=== PATIENT | female | born 1990 | race African-American/Black ===

== ENCOUNTER 2016-10-25 04:14 | Emergency (ER) | payer OTHER ==
[~2016-10-25] VITALS: Ht 170.2 cm; Wt 52.2 kg
[~2016-10-25 04:14] MED LIST: BENZ100C PO; DOXY100T PO; HYDR-971 PO; NAPR550T PO; PRED20TA PO; PROAIR HFA8.5 GM INH; SULF1TAB24 PO; TRAM-29 PO
[2016-10-25 05:13] LABS: BASO # 0.1 x10^3/uL (0.0-0.2); BASO % 1 % (0-3); EOS % 1 % (0-3); HEMATOCRIT 41.1 % (36.0-47.0); HEMOGLOBIN 13.7 g/dL (12.0-15.5); LYMPH # 3.1 x10^3/uL (1.0-4.8); LYMPH % 37 % (24-48); MEAN CORPUSCULAR HEMOGLOBIN 33 pg (25-35); MEAN CORPUSCULAR HGB CONC 33 g/dL (31-37); MEAN CORPUSCULAR VOLUME 100 fL (79-100); MONO % 7 % (0-9); NEUT % 54 % (31-73); PLATELET COUNT 263 x10^3/uL (140-400); RED BLOOD COUNT 4.13 x10^6/uL (3.50-5.40); RED CELL DISTRIBUTION WIDTH 12.7 % (11.5-14.5); WHITE BLOOD COUNT 8.4 x10^3/uL (4.0-11.0)
[2016-10-25 05:17] LABS: BILIRUBIN,URINE NEGATIVE (NEG); GLUCOSE,URINE NEGATIVE (NEG); NITRITE,URINE NEGATIVE (NEG); PROTEIN,URINE NEGATIVE (NEG-TRACE); UROBILINOGEN,URINE 0.2 mg/dL (0.2 mg/dL)
[2016-10-25 05:24] LABS: BARBITURATES NEG (NEG); BENZODIAZEPINES NEG (NEG); CANNABINOIDS POS (NEG); COCAINE NEG (NEG); METHADONE NEG (NEG); OPIATES NEG (NEG); PHENCYCLIDINE NEG (NEG)
[2016-10-25 05:25] LABS: ETHANOL, URINE POS (NEG)
[2016-10-25 05:28] LABS: CALCIUM 8.9 mg/dL (8.5-10.1); CREATININE 0.8 mg/dL (0.6-1.0); GFR 106.6; POTASSIUM 3.9 mmol/L (3.5-5.1)
[2016-10-25 05:30] LABS: BACTERIA,URINE FEW /HPF (0-FEW); RBC,URINE 0 /HPF (0-2); SQUAMOUS EPITHELIAL CELL,UR FEW /LPF
[2016-10-25] MEDS ORDERED: ONDANSETRON PF 4 MG/2 ML VIAL. IV ONE (05:30)
[2016-10-25] MEDS ORDERED: IV NORMAL SALINE 1000ML BAG 1,000 ML IV SCH (05:30)
[2016-10-25] MEDS ORDERED: KETOROLAC TROMETHAMINE 30 MG/ML INJ. IV ONE (05:30)
[2016-10-25] MEDS ORDERED: HYDROMORPHONE 2 MG/ML VIAL. IV ONE (05:30)
[2016-10-25 05:33] LABS: ALBUMIN 3.8 g/dL (3.4-5.0); ALBUMIN/GLOBULIN RATIO 1.2 (1.0-1.7); TOTAL BILIRUBIN 0.3 mg/dL (0.2-1.0); TOTAL PROTEIN 7.1 g/dL (6.4-8.2)
[2016-10-25 05:35] LABS: NEG OBC SER NEG; POS OBC SER POS
[2016-10-25] MEDS ORDERED: TRAM-29 PO (06:17)
[2016-10-25] MEDS ORDERED: ONDA4TAB10 SL (06:17)
--- NOTE | 2016-10-25 06:18 | PHYS DOC ---
Past Medical History Past Medical History: Asthma, Bronchitis, IBS, Sickle Cell Disease Past Surgical History: Other Additional Past Surgical Histo: tube removal Alcohol Use: Occasionally Drug Use: Marijuana Adult General Chief Complaint Chief Complaint: ABDOMINAL PAIN HPI HPI Patient is a 25 year old female who presents here today complaining of abdominal pain that started approximately 10 PM tonight. Patient reports that the pain got much worse approximately 30 minutes prior to arrival to the ER. Patient denies any history of hypertension diabetes liver longer kidney problems. Patient reports she smokes and drinks but no drugs. Patient reports that her last alcohol use was approximately 10 PM where she was drinking Moscato wine when the pain started. Patient reports she went home and try to sleep at approximately 30 minutes prior to arrival the pain got much worse. Patient denies any fevers shakes chills nausea vomiting diarrhea. Patient reports she's got some dysuria frequency and urgency. Patient denies any chest pain. Patient complaining of left upper quadrant and left lower quadrant abdominal discomfort. Patient's last menstrual period was 3 weeks ago. Patient reports that she's had a tubal in the past. Patient had a procedure done approximately 2 weeks ago. Patient's physical exam the ER was significant for tenderness to palpation to her left upper and left lower quadrant. Patient had no rebound or guarding. Patient has no psoas or obturator signs. Patient denies any signs or symptoms of be consistent with an acute surgical abdomen. Patient's heart was regular rate. Lungs are clear. Abdomen was benign otherwise. Patient's ER hospital course was significant for last being drawn which were all within normal limits. Patient's UA was unremarkable. Patient's test was negative. Patient received Toradol and Zofran and Dilaudid to assist with the pain and at 6:15 AM patient is completely pain-free and resting comfortably. A/P #1 abdominal pain: Etiology unclear. Patient is clinically and hemodynamically stable with a negative ER workup. Patient does not present with any signs or symptoms of be concerning for an acute surgical abdomen. Patient will be discharged home in stable condition with instructions to follow up with her primary care physician for further evaluation of this discomfort. Patient was instructed to return to the ER if the pain worsens or if she has any other concerns however at this time there is no further indication for inpatient or further emergency room evaluation. Review of Systems Review of Systems Constitutional: Denies fever or chills [] Eyes: Denies change in visual acuity, redness, or eye pain [] HENT: Denies nasal congestion or sore throat [] All other REVIEW of systems are negative except as documented in the history of present illness portion. Current Medications Current Medications Current Medications Medications (Trade) Dose Ordered Sig/Phi Start Time Stop Time Status Last Admin Dose Admin Hydromorphone HCl (Dilaudid) 0.5 mg 1X ONCE 10/25/16 05:30 10/25/16 05:31 DC 10/25/16 05:23 0.5 MG Ketorolac Tromethamine (Toradol) 30 mg 1X ONCE 10/25/16 05:30 10/25/16 05:31 DC 10/25/16 05:25 30 MG Ondansetron HCl (Zofran) 4 mg 1X ONCE 10/25/16 05:30 10/25/16 05:31 DC 10/25/16 05:20 4 MG Sodium Chloride (Iv Sodium Chloride 0.9% 1000ml Bag) 1,000 ml @ 1,000 mls/hr Q1H 10/25/16 05:30 10/25/16 06:29 10/25/16 05:18 1,000 MLS/HR Allergies Allergies Allergies Coded Allergies Type Severity Reaction Last Updated Verified No Known Drug Allergies 08/24/15 No Physical Exam Physical Exam Constitutional: Well developed, well nourished, no acute distress, non-toxic appearance. [] HENT: Normocephalic, atraumatic, bilateral external ears normal, oropharynx moist, no oral exudates, nose normal. [] Eyes: PERRLA, EOMI, conjunctiva normal, no discharge. [] Neck: Normal range of motion, no tenderness, supple, no stridor. [] Cardiovascular:Heart rate regular rhythm, no murmur [] Lungs & Thorax: Bilateral breath sounds clear to auscultation [] Abdomen: See above. Back: No tenderness, no CVA tenderness. [] Extremities: No tenderness, no cyanosis, no clubbing, ROM intact, no edema. [] Neurologic: Alert and oriented X 3, normal motor function, normal sensory function, no focal deficits noted. [] Psychologic: Affect normal, judgement normal, mood normal. [] Current Patient Data Vital Signs Vital Signs Date Time Temp Pulse Resp B/P Pulse Ox O2 Delivery O2 Flow Rate FiO2 10/25/16 05:23 18 10/25/16 04:49 98.3 82 97 Room Air 98.3 Lab Values Laboratory Tests Test 10/25/16 03:49 10/25/16 04:38 10/25/16 04:56 10/25/16 05:02 POC Urine HCG, Qualitative Hcg negative (Negative) Urine Collection Type Unknown Urine Color Yellow Urine Clarity Clear Urine pH 6.0 Urine Specific [place] 1.010 Urine Protein Negativemg/dL (NEG-TRACE) Urine Glucose (UA) Negativemg/dL (NEG) Urine Ketones (Stick) Negativemg/dL (NEG) Urine Blood Negative (NEG) Urine Nitrite Negative (NEG) Urine Bilirubin Negative (NEG) Urine Urobilinogen Dipstick 0.2mg/dL (0.2 mg/dL) Urine Leukocyte Esterase Negative (NEG) Urine RBC 0/HPF (0-2) Urine WBC 1-4/HPF (0-4) Urine Squamous Epithelial Cells Few/LPF Urine Bacteria Few/HPF (0-FEW) Urine Mucus Mod/LPF Urine Opiates Screen Neg (NEG) Urine Methadone Screen Neg (NEG) Urine Barbiturates Neg (NEG) Urine Phencyclidine Screen Neg (NEG) Urine Amphetamine/Methamphetamine Neg (NEG) Urine Benzodiazepines Screen Neg (NEG) Urine Cocaine Screen Neg (NEG) Urine Cannabinoids Screen Pos (NEG) Urine Ethyl Alcohol Pos (NEG) Serum Test, Qualitative Negative (NEG) White Blood Count 8.4x10^3/uL (4.0-11.0) Red Blood Count 4.13x10^6/uL (3.50-5.40) Hemoglobin 13.7g/dL (12.0-15.5) Hematocrit 41.1% (36.0-47.0) Mean Corpuscular Volume 100fL (79-100) Mean Corpuscular Hemoglobin 33pg (25-35) Mean Corpuscular Hemoglobin Concent 33g/dL (31-37) Red Cell Distribution Width 12.7% (11.5-14.5) Platelet Count 263x10^3/uL (140-400) Neutrophils (%) (Auto) 54% (31-73) Lymphocytes (%) (Auto) 37% (24-48) Monocytes (%) (Auto) 7% (0-9) Eosinophils (%) (Auto) 1% (0-3) Basophils (%) (Auto) 1% (0-3) Neutrophils # (Auto) 4.5x10^3uL (1.8-7.7) Lymphocytes # (Auto) 3.1x10^3/uL (1.0-4.8) Monocytes # (Auto) 0.6x10^3/uL (0.0-1.1) Eosinophils # (Auto) 0.1x10^3/uL (0.0-0.7) Basophils # (Auto) 0.1x10^3/uL (0.0-0.2) Sodium Level 142mmol/L (136-145) Potassium Level 3.9mmol/L (3.5-5.1) Chloride Level 105mmol/L (98-107) Carbon Dioxide Level 23mmol/L (21-32) Anion Gap 14 (6-14) Blood Urea Nitrogen 9mg/dL (7-20) Creatinine 0.8mg/dL (0.6-1.0) Estimated GFR (Cockcroft-Gault) 106.6 BUN/Creatinine Ratio 11 (6-20) Glucose Level 90mg/dL (70-99) Calcium Level 8.9mg/dL (8.5-10.1) Total Bilirubin 0.3mg/dL (0.2-1.0) Aspartate Amino Transferase (AST) 19U/L (15-37) Alanine Aminotransferase (ALT) 18U/L (14-59) Alkaline Phosphatase 48U/L (46-116) Total Protein 7.1g/dL (6.4-8.2) Albumin 3.8g/dL (3.4-5.0) Albumin/Globulin Ratio 1.2 (1.0-1.7) Lipase 153U/L (73-393) Laboratory Tests 10/25/16 05:02 Laboratory Tests 10/25/16 05:02 EKG EKG [] Radiology/Procedures Radiology/Procedures [] Course & Med Decision Making Course & Med Decision Making Pertinent Labs and Imaging studies reviewed. (See chart for details) [] Dragon Disclaimer Dragon Disclaimer This electronic medical record was generated, in whole or in part, using a voice recognition dictation system. Departure Departure Impression: Primary Impression: Abdominal pain Disposition: HOME, SELF-CARE Condition: GUARDED Referrals: NO PCP (PCP) Patient Instructions: Abdominal Pain (Nonspecific) Scripts Ondansetron (Zofran Odt)4 Mg Tab.rapdis1 Tab SL Q6HRS PRN NAUSEA #12 TAB Prov:SHEA VAUGHAN MD 10/25/16 Tramadol Hcl (Ultram)50 Mg Tablet1 Tab PO Q6HRS #14 TAB Prov:SHEA VAUGHAN MD 10/25/16 SHEA VAUGHAN MD Oct 25, 2016 06:17
[2016-10-25 06:55] VITALS: BP 120/75
== END 2016-10-25 06:58 | disposition home or self-care (01) ==
LOC: ER 04:14
DX: R10.31 Right lower quadrant pain (principal); J45.909 Unspecified asthma, uncomplicated; F12.10 Cannabis abuse, uncomplicated; F17.200 Nicotine dependence, unspecified, uncomplicated
CPT/HCPCS: 36415; 80053; 80305; 81001; 81025; 83690; 84703; 85027; 96361; 96374; 96375; 99284; J1170; J1885; J2405; J7030; G0481

== ENCOUNTER 2016-12-02 03:37 | Emergency (ER) | payer OTHER ==
[~2016-12-02] VITALS: Ht 170.2 cm; Wt 52.2 kg
[~2016-12-02 03:37] MED LIST changes: +ONDA4TAB10 SL
[2016-12-02 03:51] VITALS: BP 113/69
[2016-12-02 04:27] LABS: BILIRUBIN,URINE NEGATIVE (NEG); GLUCOSE,URINE NEGATIVE (NEG); PH,URINE 5.5
[2016-12-02 04:28] LABS: BACTERIA,URINE 0 /HPF (0-FEW); NITRITE,URINE NEGATIVE (NEG); PROTEIN,URINE NEGATIVE (NEG-TRACE); RBC,URINE 0 /HPF (0-2); SQUAMOUS EPITHELIAL CELL,UR MOD /LPF; UROBILINOGEN,URINE 0.2 mg/dL (0.2 mg/dL); WBC,URINE OCC /HPF (0-4)
[2016-12-02] MEDS ORDERED: LIDO:MAALOX:DONNATAL 1:1:1 15 ML SINGLE DOSE SWSW ONE (04:30)
[2016-12-02] MEDS ORDERED: ONDANSETRON ODT 4 MG TAB.RAPDIS. PO ONE (04:30)
[2016-12-02] MEDS ORDERED: DICY10CA53 PO (04:35)
[2016-12-02] MEDS ORDERED: ONDA4TAB7 PO (04:35)
[2016-12-02] MEDS ORDERED: METR500T PO (04:35)
--- NOTE | 2016-12-02 04:35 | PHYS DOC ---
Past Medical History Past Medical History: Asthma, Bronchitis, IBS Past Surgical History: Other Additional Past Surgical Histo: tube removal Alcohol Use: Occasionally Drug Use: Marijuana Adult General Chief Complaint Chief Complaint: ABDOMINAL PAIN HPI HPI 25 year old female is having mild epigastrium and left upper quadrant pain with some mild nausea as well has some vaginal discharge for the last several days. Patient is in no acute distress upon arrival. She is afebrile nontoxic in appearance. She denies any history of significant health problems. Patient was recently treated for STDs and is currently on a course of doxycycline. She describes her discharge as a thin white discharge. She denies any vaginal bleeding. She denies any dysuria or hematuria. Review of Systems Review of Systems Constitutional: Denies fever or chills [] Eyes: Denies change in visual acuity, redness, or eye pain [] HENT: Denies nasal congestion or sore throat [] Respiratory: Denies cough or shortness of breath [] Cardiovascular: No additional information not addressed in HPI [] GI: Denies abdominal pain, nausea, vomiting, bloody stools or diarrhea [] : Denies dysuria or hematuria [] Musculoskeletal: Denies back pain or joint pain [] Integument: Denies rash or skin lesions [] Neurologic: Denies headache, focal weakness or sensory changes [] Endocrine: Denies polyuria or polydipsia [] Current Medications Current Medications Current Medications Medications (Trade) Dose Ordered Sig/Phi Start Time Stop Time Status Last Admin Dose Admin Multi-Ingredient Mouthwash/Gargle (Gi Cocktail Single Dose) 15 ml 1X ONCE 12/02/16 04:30 12/02/16 04:31 DC 12/02/16 04:23 15 ML Ondansetron HCl (Zofran Odt) 4 mg 1X ONCE 12/02/16 04:30 12/02/16 04:31 DC 12/02/16 04:24 4 MG Allergies Allergies Allergies Coded Allergies Type Severity Reaction Last Updated Verified No Known Drug Allergies 08/24/15 No Physical Exam Physical Exam Constitutional: Well developed, well nourished, no acute distress, non-toxic appearance. [] HENT: Normocephalic, atraumatic, bilateral external ears normal, oropharynx moist, no oral exudates, nose normal. [] Eyes: PERRLA, EOMI, conjunctiva normal, no discharge. [] Neck: Normal range of motion, no tenderness, supple, no stridor. [] Cardiovascular:Heart rate regular rhythm, no murmur [] Lungs & Thorax: Bilateral breath sounds clear to auscultation [] Abdomen: Bowel sounds normal, soft, no tenderness, no masses, no pulsatile masses. [] : Her speculum exam reveals a closed cervical os with a thin white discharge noted. She has no CMT or adnexal tenderness. Skin: Warm, dry, no erythema, no rash. [] Back: No tenderness, no CVA tenderness. [] Extremities: No tenderness, no cyanosis, no clubbing, ROM intact, no edema. [] Neurologic: Alert and oriented X 3, normal motor function, normal sensory function, no focal deficits noted. [] Psychologic: Affect normal, judgement normal, mood normal. [] Current Patient Data Vital Signs Vital Signs Date Time Temp Pulse Resp B/P (MAP) Pulse Ox O2 Delivery O2 Flow Rate FiO2 12/02/16 03:51 98.8 64 16 113/69 (84) 97 Room Air 98.8 Lab Values Laboratory Tests Test 12/02/16 03:16 12/02/16 03:45 POC Urine HCG, Qualitative Hcg negative (Negative) Urine Collection Type Unknown Urine Color Yellow Urine Clarity Clear Urine pH 5.5 Urine Specific [place] 1.025 Urine Protein Negative mg/dL (NEG-TRACE) Urine Glucose (UA) Negative mg/dL (NEG) Urine Ketones (Stick) Negative mg/dL (NEG) Urine Blood Negative (NEG) Urine Nitrite Negative (NEG) Urine Bilirubin Negative (NEG) Urine Urobilinogen Dipstick 0.2 mg/dL (0.2 mg/dL) Urine Leukocyte Esterase Negative (NEG) Urine RBC 0 /HPF (0-2) Urine WBC Occ /HPF (0-4) Urine Squamous Epithelial Cells Mod /LPF Urine Calcium Phosphate Crystals /HPF Urine Bacteria 0 /HPF (0-FEW) Urine Mucus Marked /LPF Microbiology 12/02/16 Wet Prep - Final, Complete EKG EKG [] Radiology/Procedures Radiology/Procedures [] Course & Med Decision Making Course & Med Decision Making Pertinent Labs and Imaging studies reviewed. (See chart for details) 25 year old female is having some vaginal discharge had a exam that was negative for any cervical motion tenderness. Patient did have a thin white discharge for which I'll place the patient on Flagyl. The patient was recently treated for STD and I do not see an indication at this time to retreat her. Her urinalysis is negative for any infection. Patient was also given Zofran and GI cocktail for likely symptoms of gastritis. Patient was given prescriptions for Flagyl and Zofran. She was counseled to continue to take her doxycycline as well. There is no indication to perform any laboratory workup at this time. She felt much improved upon discharge. Return precautions were provided and acknowledged by the patient. Dragon Disclaimer Dragon Disclaimer This electronic medical record was generated, in whole or in part, using a voice recognition dictation system. Departure Departure Impression: Primary Impression: Abdominal pain Additional Impression: Bacterial vaginosis Disposition: HOME, SELF-CARE Admitting Physician: Other Condition: STABLE Referrals: NO PCP (PCP) Patient Instructions: Bacterial Vaginosis, [id number] Additional Instructions: Please take your medication as prescribed. Return to the ER if you develop any worsening of your symptoms. Follow up with your primary doctor in the next 2-3 days. Scripts Metronidazole (FLAGYL) 500 Mg Tablet 1 TAB PO BID, #14 TAB Prov: JENIFFER PARRA DO 12/02/16 Dicyclomine Hcl (BENTYL) 10 Mg Capsule 10 MG PO TID for 5 Days, #15 TAB Prov: JENIFFER PARRA DO 12/02/16 Ondansetron Hcl (ZOFRAN) 4 Mg Tablet 4 MG PO BID Y for NAUSEA/VOMITING, #10 TAB Prov: JENIFFER PARRA DO 12/02/16 Problem Qualifiers JENIFFER PARRA DO December 02, 2016 04:35
== END 2016-12-02 04:47 | disposition home or self-care (01) ==
LOC: ER 03:37
DX: R10.13 Epigastric pain (principal); N76.0 Acute vaginitis; K58.9 Irritable bowel syndrome, unspecified; F12.10 Cannabis abuse, uncomplicated; J45.909 Unspecified asthma, uncomplicated
CPT/HCPCS: 81001; 81025; 87491; 87591; 99284; Q0111; Q0162

== ENCOUNTER 2017-06-24 19:42 | Emergency (ER) | payer OTHER ==
[~2017-06-24] VITALS: Ht 170.2 cm; Wt 49.9 kg
[~2017-06-24 19:42] MED LIST changes: +CEPH-263 PO; +CLOT15CR4 TP; +DICY10CA53 PO; +METR500T PO; +NAPR-682 PO; -NAPR550T PO; +ONDA4TAB7 PO; -TRAM-29 PO; +TRAM-48 PO
--- NOTE | 2017-06-24 20:13 | PHYS DOC ---
Past Medical History Past Medical History: Asthma, Bronchitis, IBS, Other Additional Past Medical Histor: EPTOPIC Past Surgical History: Other Additional Past Surgical Histo: tube removal Alcohol Use: Occasionally Drug Use: Marijuana Adult General Chief Complaint Chief Complaint: ABDOMINAL PAIN IN HPI HPI Patient is a 26 year old F who presents with abdominal pain was approximate 7 weeks . Patient is A1 who presents with abdominal pain for the past day. Patient denies any vaginal discharge or vaginal bleeding. Patient declines any recent intercourse. Patient denies any dysuria. Patient states nothing increases or decreases the pain. Patient states the pains been constant. Patient has no other complaints. Review of Systems Review of Systems GEN: Denies fevers, chills, sweats HEENT: Denies blurred vision, sore throat CV: Denies chest pain RESP: Denies shortness of air, cough GI: Abdominal pain NEURO: Denies confusion, dizziness MSK: Denies weakness, joint pain/swelling All other systems were reviewed and found to be within normal limits, except as documented in this note. Current Medications Current Medications Current Medications Medications (Trade) Dose Ordered Sig/Phi Start Time Stop Time Status Last Admin Dose Admin Acetaminophen (Tylenol) 1,000 mg 1X ONCE 06/24/17 22:00 06/24/17 22:01 DC 06/24/17 21:50 1,000 MG Sodium Chloride 1,000 ml @ 1,000 mls/hr 1X ONCE 06/24/17 20:15 06/24/17 21:14 DC 06/24/17 20:10 1,000 MLS/HR Allergies Allergies Allergies Coded Allergies Type Severity Reaction Last Updated Verified No Known Drug Allergies 08/24/15 No Physical Exam Physical Exam GEN.: No apparent distress. Alert and oriented. HEENT: Head is normocephalic, atraumatic NECK: Supple. LUNGS: CTAB. HEART: RRR, S1, S2 present. Peripheral pulses intact ABDOMEN: Soft, nontender. Positive bowel sounds. EXTREMITIES: Without any cyanosis. NEUROLOGIC: Normal speech, normal tone PSYCHIATRIC: Normal affect, normal mood. SKIN: No ulcerations Current Patient Data Vital Signs Vital Signs Date Time Temp Pulse Resp B/P (MAP) Pulse Ox O2 Delivery O2 Flow Rate FiO2 06/24/17 19:55 97.8 85 16 125/60 (81) 100 Room Air 97.8 Lab Values Laboratory Tests Test 06/24/17 19:57 06/24/17 19:58 06/24/17 20:37 Urine Collection Type Unknown Urine Color Yellow Urine Clarity Cloudy Urine pH 7.0 Urine Specific [place] 1.015 Urine Protein Negative mg/dL (NEG-TRACE) Urine Glucose (UA) Negative mg/dL (NEG) Urine Ketones (Stick) Negative mg/dL (NEG) Urine Blood Negative (NEG) Urine Nitrite Negative (NEG) Urine Bilirubin Negative (NEG) Urine Urobilinogen Dipstick 0.2 mg/dL (0.2 mg/dL) Urine Leukocyte Esterase Negative (NEG) Urine RBC 0 /HPF (0-2) Urine WBC Occ /HPF (0-4) Urine Squamous Epithelial Cells Few /LPF Urine Amorphous Sediment Present /HPF Urine Bacteria 0 /HPF (0-FEW) Urine Mucus Slight /LPF POC Urine HCG, Qualitative Hcg positive (Negative) White Blood Count 13.0 x10^3/uL (4.0-11.0) H Red Blood Count 3.63 x10^6/uL (3.50-5.40) Hemoglobin 12.1 g/dL (12.0-15.5) Hematocrit 36.1 % (36.0-47.0) Mean Corpuscular Volume 100 fL (79-100) Mean Corpuscular Hemoglobin 33 pg (25-35) Mean Corpuscular Hemoglobin Concent 34 g/dL (31-37) Red Cell Distribution Width 12.9 % (11.5-14.5) Platelet Count 287 x10^3/uL (140-400) Neutrophils (%) (Auto) 66 % (31-73) Lymphocytes (%) (Auto) 24 % (24-48) Monocytes (%) (Auto) 8 % (0-9) Eosinophils (%) (Auto) 1 % (0-3) Basophils (%) (Auto) 1 % (0-3) Neutrophils # (Auto) 8.6 x10^3uL (1.8-7.7) H Lymphocytes # (Auto) 3.2 x10^3/uL (1.0-4.8) Monocytes # (Auto) 1.0 x10^3/uL (0.0-1.1) Eosinophils # (Auto) 0.1 x10^3/uL (0.0-0.7) Basophils # (Auto) 0.1 x10^3/uL (0.0-0.2) Maternal Serum HCG Beta Subunit 051388 mIU/mL (0-5) H Sodium Level 138 mmol/L (136-145) Potassium Level 4.2 mmol/L (3.5-5.1) Chloride Level 104 mmol/L (98-107) Carbon Dioxide Level 27 mmol/L (21-32) Anion Gap 7 (6-14) Blood Urea Nitrogen 7 mg/dL (7-20) Creatinine 0.6 mg/dL (0.6-1.0) Estimated GFR (Cockcroft-Gault) 147.4 BUN/Creatinine Ratio 12 (6-20) Glucose Level 120 mg/dL (70-99) H Calcium Level 8.7 mg/dL (8.5-10.1) Total Bilirubin 0.1 mg/dL (0.2-1.0) L Aspartate Amino Transferase (AST) 16 U/L (15-37) Alanine Aminotransferase (ALT) 15 U/L (14-59) Alkaline Phosphatase 44 U/L (46-116) L Total Protein 6.3 g/dL (6.4-8.2) L Albumin 3.3 g/dL (3.4-5.0) L Albumin/Globulin Ratio 1.1 (1.0-1.7) Laboratory Tests 06/24/17 20:37 Laboratory Tests 06/24/17 20:37 EKG EKG [] Radiology/Procedures Radiology/Procedures US: IMPRESSION: 1. Single live intrauterine with appropriate size by ultrasound. 2. No abnormality identified. A short-term follow-up ultrasound could be performed if clinically indicated otherwise a structural survey would be performed at 18-21 weeks gestational age.[] Course & Med Decision Making Course & Med Decision Making Pertinent Labs and Imaging studies reviewed. (See chart for details) ED course: Patient was seen and examined emergency room basic blood work was ordered along with the ultrasound first trimester Was updated on ultrasound results and plan to discharge home and recommended follow-up GEOLOGY INSTRUCTOR MDM: After reviewing the chart, CC/HPI/PMH, physical exam, [lab results], [ radiological results], I do not believe the patient has emergent obstetrics condition warranting further workup and/or admission at this time. I the patient stable for discharge. Recommended pelvic rest and short term follow-up with her GEOLOGY INSTRUCTOR. Additional verbal discharge instructions were provided to the patient and that if symptoms get worse or any new symptoms arise that are worrisome to the patient she is to return to the emergency room immediately Mike Disclaimer Luciuson Disclaimer This electronic medical record was generated, in whole or in part, using a voice recognition dictation system. Departure Departure Impression: Primary Impression: Abdominal pain affecting Disposition: 01 HOME, SELF-CARE Condition: STABLE Referrals: NO PCP (PCP) Patient Instructions: Abdominal Pain During Additional Instructions: Please follow-up with your OBGYN physician in the next one to 2 days and return if symptoms increase KULDIP LUCERO DO Jun 24, 2017 20:13
[2017-06-24] MEDS ORDERED: IV NORMAL SALINE 1000ML BAG 1,000 ML IV ONE (20:15)
[2017-06-24 20:17] LABS: BILIRUBIN,URINE NEGATIVE (NEG); GLUCOSE,URINE NEGATIVE (NEG); NITRITE,URINE NEGATIVE (NEG); PROTEIN,URINE NEGATIVE (NEG-TRACE); UROBILINOGEN,URINE 0.2 mg/dL (0.2 mg/dL)
[2017-06-24 20:22] LABS: BACTERIA,URINE 0 /HPF (0-FEW); RBC,URINE 0 /HPF (0-2); SQUAMOUS EPITHELIAL CELL,UR FEW /LPF; WBC,URINE OCC /HPF (0-4)
[2017-06-24 20:48] LABS: BASO # 0.1 x10^3/uL (0.0-0.2); BASO % 1 % (0-3); EOS % 1 % (0-3); HEMATOCRIT 36.1 % (36.0-47.0); HEMOGLOBIN 12.1 g/dL (12.0-15.5); LYMPH # 3.2 x10^3/uL (1.0-4.8); LYMPH % 24 % (24-48); MEAN CORPUSCULAR HEMOGLOBIN 33 pg (25-35); MEAN CORPUSCULAR HGB CONC 34 g/dL (31-37); MEAN CORPUSCULAR VOLUME 100 fL (79-100); MONO % 8 % (0-9); NEUT % 66 % (31-73); PLATELET COUNT 287 x10^3/uL (140-400); RED BLOOD COUNT 3.63 x10^6/uL (3.50-5.40); RED CELL DISTRIBUTION WIDTH 12.9 % (11.5-14.5)
[2017-06-24 21:03] LABS: CALCIUM 8.7 mg/dL (8.5-10.1); CREATININE 0.6 mg/dL (0.6-1.0); GFR 147.4; POTASSIUM 4.2 mmol/L (3.5-5.1)
[2017-06-24 21:11] LABS: ALBUMIN 3.3 g/dL (3.4-5.0); ALBUMIN/GLOBULIN RATIO 1.1 (1.0-1.7); TOTAL BILIRUBIN 0.1 mg/dL (0.2-1.0); TOTAL PROTEIN 6.3 g/dL (6.4-8.2)
[2017-06-24] MEDS ORDERED: ACETAMINOPHEN 500 MG TABLET PO ONE (22:00)
--- NOTE | 2017-06-24 22:42 | RAD ---
OB ultrasound less than 14 weeks and transvaginal OB ultrasound HISTORY: with pain for one day Sonographic examination of the was performed by transabdominal and endovaginal technique. Multiple static images were obtained COMPARISON: June 11, 2017 OB ultrasound less than 14 weeks transabdominal: There is a single live intrauterine . The heartbeat is confirmed at 147 beats per minute. Transvaginal OB ultrasound: The pole and yolk sac and gestational sac are again seen in the uterus. The crown-rump length of 12.3 mm corresponds with a 7 week 3 day gestational age and estimated date confinement of 02/07/2018. The LMP of 05/04/2017 corresponds with 7 week 2 day gestational age. The left ovary appears normal with normal blood flow. There is a 1.9 x 1.2 x 2.0 cm corpus luteal cyst in the right ovary. The right ovary has normal blood flow. IMPRESSION: 1. Single live intrauterine with appropriate size by ultrasound. 2. No abnormality identified. A short-term follow-up ultrasound could be performed if clinically indicated otherwise a structural survey would be performed at 18-21 weeks gestational age. Electronically signed by: Tien Galeano III, MD (06/24/2017 10:39 PM) [facility]
[2017-06-24 23:15] VITALS: BP 98/54
== END 2017-06-24 23:25 | disposition home or self-care (01) ==
LOC: ER 19:42
DX: O26.891 Other specified pregnancy related conditions, first trimester (principal); R10.9 Unspecified abdominal pain; O99.511 Diseases of the respiratory system complicating pregnancy, first trimester; J45.909 Unspecified asthma, uncomplicated; O99.611 Diseases of the digestive system complicating pregnancy, first trimester; K58.9 Irritable bowel syndrome, unspecified; F12.10 Cannabis abuse, uncomplicated; Z3A.01 Less than 8 weeks gestation of pregnancy
CPT/HCPCS: 36415; 76801; 76817; 80053; 81001; 81025; 84702; 85025; 99284; J7030

== ENCOUNTER 2017-10-18 23:10 | Observation (INO) | payer OTHER ==
[2017-10-18] MEDS ORDERED: ONDANSETRON PF 4 MG/2 ML VIAL. IV (23:15)
[2017-10-18] MEDS ORDERED: IV RINGERS,LACTATED 1000ML 1,000 ML IV (23:15)
[2017-10-18 23:41] LABS: BILIRUBIN,URINE NEGATIVE (NEG); CLARITY,URINE CLEAR; COLOR,URINE YELLOW; GLUCOSE,URINE 100 mg/dL (NEG); NITRITE,URINE NEGATIVE (NEG); PH,URINE 6.5; PROTEIN,URINE NEGATIVE (NEG-TRACE)
[2017-10-18 23:44] LABS: BARBITURATES NEG (NEG); BENZODIAZEPINES NEG (NEG); CANNABINOIDS POS (NEG); COCAINE NEG (NEG); METHADONE NEG (NEG); OPIATES NEG (NEG); PHENCYCLIDINE NEG (NEG)
[2017-10-18 23:45] LABS: BACTERIA,URINE MODERATE /HPF (0-FEW); RBC,URINE 0 /HPF (0-2); SQUAMOUS EPITHELIAL CELL,UR MANY /LPF
[2017-10-18 23:46] LABS: AMPHETAMINE/METHAMPHETAMINE NEG (NEG); ETHANOL, URINE NEG (NEG)
== END 2017-10-19 00:46 | disposition home or self-care (01) ==
LOC: 3 SO LND 23:10
DX: O21.2 Late vomiting of pregnancy (principal); O26.892 Other specified pregnancy related conditions, second trimester; R10.9 Unspecified abdominal pain; R11.0 Nausea; Z3A.25 25 weeks gestation of pregnancy
CPT/HCPCS: 80307; 81001; 87086; G0378; G0379

== ENCOUNTER 2018-01-01 09:54 | Observation (INO) | payer OTHER ==
[2018-01-01] MEDS ORDERED: IV RINGERS,LACTATED 1000ML 1,000 ML IV (11:00)
[2018-01-01] MEDS: hydrOXYzine PAMOATE 25 MG CAPSULE PO (11:26)
[2018-01-01 11:33] LABS: BILIRUBIN,URINE NEGATIVE (NEG); CLARITY,URINE CLEAR; COLOR,URINE YELLOW; GLUCOSE,URINE 250 mg/dL (NEG); NITRITE,URINE NEGATIVE (NEG); PROTEIN,URINE NEGATIVE (NEG-TRACE); UROBILINOGEN,URINE 0.2 mg/dL (0.2 mg/dL)
[2018-01-01 11:34] LABS: BACTERIA,URINE 0 /HPF (0-FEW); RBC,URINE 0 /HPF (0-2); SQUAMOUS EPITHELIAL CELL,UR FEW /LPF; WBC,URINE OCC /HPF (0-4)
== END 2018-01-01 11:30 | disposition home or self-care (01) ==
LOC: 3 SO LND 09:54
DX: O62.9 Abnormality of forces of labor, unspecified (principal); Z3A.32 32 weeks gestation of pregnancy
CPT/HCPCS: 81001; G0378; G0379; Q0177

== ENCOUNTER 2018-03-31 11:54 | Emergency (ER) | payer OTHER ==
[~2018-03-31] VITALS: Ht 170.2 cm; Wt 61.2 kg
[2018-03-31] MEDS ORDERED: IV NORMAL SALINE 1000ML BAG 1,000 ML IV ONE (12:30)
--- NOTE | 2018-03-31 12:49 | PHYS DOC ---
Past Medical History Past Medical History: Asthma, Bronchitis, IBS, Other Additional Past Medical Histor: EPTOPIC Past Surgical History: Other Additional Past Surgical Histo: tube removal Alcohol Use: Occasionally Drug Use: Marijuana Adult General Chief Complaint Chief Complaint: MULTIPLE COMPLAINTS HPI HPI 27-year-old female presenting the emergency department today with sore throat and changes in vaginal discharge with lower abdominal pain. She has had intermittent nausea vomiting and diarrhea as well. Patient complains of yellow thick vaginal discharge for about a week. She denies exposure to STDs but does have a history of chlamydia. The pain in her lower abdomen is intermittent is been present for one week. It is a cramping sensation that is nonradiating mild to moderate and without alleviating factors. She has also had a cough. Review of systems was positive for sore throat cough pelvic pain vaginal discharge changes. She denies fevers. She denies chills. All other review of systems is negative unless otherwise noted in history of present illness. ED course: 27-year-old female presenting the emergency department with sore throat cough lower abdominal pain with changes in vaginal discharge. Pelvic exam performed in the presence of the patient's female nurse Katarzyna. No CMT present. Minimal discharge. Abdomen is soft and nontender. Negative McBurney's point. Negative Wallace sign. Patient is tachycardic. IV fluids given. Strep test sent. Chest x-ray ordered. Patient's tachycardia resolved with IV fluids here in the emergency room. Heart rate of 74 on reexamination at 325. Ultrasound obtained which shows complex ovarian cyst on the right. Chest x-ray shows no acute pathology. Strep test negative. Yeast present. We'll give the patient oral Diflucan here to follow up with PCP in 2-3 days.The patient has been examined and was not found to have an emergency medical condition. The patient was then discharged home in stable condition to follow up with their primary care physician over the next 2-3 days. They were to return if their symptoms worsened or if they were concerned for any reason. They were also instructed to return to the emergency department if they were unable to get the recommended and appropriate follow-up. [id number] discharge instructions and return precautions were given. Patient's questions were answered to their satisfaction. Patient is comfortable with plan. Review of Systems Review of Systems SEE ABOVE. Current Medications Current Medications Current Medications Medications (Trade) Dose Ordered Sig/Phi Start Time Stop Time Status Last Admin Dose Admin Azithromycin (Zithromax) 1,000 mg 1X ONCE 03/31/18 13:00 03/31/18 13:01 DC 03/31/18 13:41 1,000 MG Ceftriaxone Sodium (Rocephin Im) 250 mg 1X ONCE 03/31/18 13:00 03/31/18 13:01 DC 03/31/18 13:44 250 MG Fentanyl Citrate (Fentanyl 2ml Vial) 25 mcg 1X PRN PRN 03/31/18 14:00 03/31/18 13:56 25 MCG Ondansetron HCl (Zofran) 4 mg 1X ONCE 03/31/18 14:15 03/31/18 14:16 DC 03/31/18 14:06 4 MG Sodium Chloride 1,000 ml @ 1,000 mls/hr 1X ONCE 03/31/18 12:30 03/31/18 13:29 DC 03/31/18 13:23 1,000 MLS/HR Allergies Allergies Allergies Coded Allergies Type Severity Reaction Last Updated Verified No Known Drug Allergies 08/24/15 No Physical Exam Physical Exam SEE ABOVE Constitutional: Well developed, well nourished, no acute distress, non-toxic appearance. [] HENT: Normocephalic, atraumatic, bilateral external ears normal, oropharynx moist, no oral exudates, nose normal. [] Eyes: PERRLA, EOMI, conjunctiva normal, no discharge. [] Neck: Normal range of motion, no tenderness, supple, no stridor. [] Cardiovascular:Heart rate regular rhythm, no murmur [] Lungs & Thorax: Bilateral breath sounds clear to auscultation [] Abdomen: Bowel sounds normal, soft, no tenderness, no masses, no pulsatile masses. [] Skin: Warm, dry, no erythema, no rash. [] Back: No tenderness, no CVA tenderness. [] Extremities: No tenderness, no cyanosis, no clubbing, ROM intact, no edema. [] Neurologic: Alert and oriented X 3, normal motor function, normal sensory function, no focal deficits noted. [] Psychologic: Affect normal, judgement normal, mood normal. [] Current Patient Data Vital Signs Vital Signs Date Time Temp Pulse Resp B/P (MAP) Pulse Ox O2 Delivery O2 Flow Rate FiO2 03/31/18 13:56 94 Room Air 9/19/18 12:10 99.3 111 20 148/89 (108) 99.3 Lab Values Laboratory Tests Test 03/31/18 12:40 03/31/18 12:44 03/31/18 12:50 03/31/18 13:00 Urine Collection Type Unknown Urine Color Melanie Urine Clarity Clear Urine pH 6.5 Urine Specific [place] 1.025 Urine Protein Negative mg/dL (NEG-TRACE) Urine Glucose (UA) Negative mg/dL (NEG) Urine Ketones (Stick) Trace mg/dL (NEG) Urine Blood Negative (NEG) Urine Nitrite Negative (NEG) Urine Bilirubin Small (NEG) Urine Urobilinogen Dipstick 1.0 mg/dL (0.2 mg/dL) Urine Leukocyte Esterase Negative (NEG) Urine RBC 0 /HPF (0-2) Urine WBC 1-4 /HPF (0-4) Urine Squamous Epithelial Cells Mod /LPF Urine Bacteria Few /HPF (0-FEW) Urine Mucus Mod /LPF POC Urine HCG, Qualitative Hcg negative (Negative) Group A Streptococcus Rapid Negative (NEGATIVE) White Blood Count 13.2 x10^3/uL (4.0-11.0) H Red Blood Count 4.75 x10^6/uL (3.50-5.40) Hemoglobin 15.7 g/dL (12.0-15.5) H Hematocrit 45.3 % (36.0-47.0) Mean Corpuscular Volume 95 fL (79-100) Mean Corpuscular Hemoglobin 33 pg (25-35) Mean Corpuscular Hemoglobin Concent 35 g/dL (31-37) Red Cell Distribution Width 13.4 % (11.5-14.5) Platelet Count 296 x10^3/uL (140-400) Neutrophils (%) (Auto) 84 % (31-73) H Lymphocytes (%) (Auto) 8 % (24-48) L Monocytes (%) (Auto) 7 % (0-9) Eosinophils (%) (Auto) 1 % (0-3) Basophils (%) (Auto) 0 % (0-3) Neutrophils # (Auto) 11.1 x10^3uL (1.8-7.7) H Lymphocytes # (Auto) 1.0 x10^3/uL (1.0-4.8) Monocytes # (Auto) 1.0 x10^3/uL (0.0-1.1) Eosinophils # (Auto) 0.1 x10^3/uL (0.0-0.7) Basophils # (Auto) 0.0 x10^3/uL (0.0-0.2) Sodium Level 139 mmol/L (136-145) Potassium Level 3.5 mmol/L (3.5-5.1) Chloride Level 103 mmol/L (98-107) Carbon Dioxide Level 24 mmol/L (21-32) Anion Gap 12 (6-14) Blood Urea Nitrogen 5 mg/dL (7-20) L Creatinine 0.8 mg/dL (0.6-1.0) Estimated GFR (Cockcroft-Gault) 104.9 BUN/Creatinine Ratio 6 (6-20) Glucose Level 108 mg/dL (70-99) H Calcium Level 9.4 mg/dL (8.5-10.1) Total Bilirubin 1.0 mg/dL (0.2-1.0) Aspartate Amino Transferase (AST) 18 U/L (15-37) Alanine Aminotransferase (ALT) 24 U/L (14-59) Alkaline Phosphatase 65 U/L (46-116) Total Protein 7.6 g/dL (6.4-8.2) Albumin 4.3 g/dL (3.4-5.0) Albumin/Globulin Ratio 1.3 (1.0-1.7) Lipase 89 U/L (73-393) Serum Test, Qualitative Negative (NEG) Laboratory Tests 03/31/18 13:00 Laboratory Tests 03/31/18 13:00 Microbiology 03/31/18 Wet Prep - Final, Complete EKG EKG [] Radiology/Procedures Radiology/Procedures [] Course & Med Decision Making Course & Med Decision Making Pertinent Labs and Imaging studies reviewed. (See chart for details) [] Dragon Disclaimer Dragon Disclaimer This electronic medical record was generated, in whole or in part, using a voice recognition dictation system. Departure Departure Impression: Primary Impression: Yeast infection Additional Impressions: Abdominal pain Sore throat Disposition: 01 HOME, SELF-CARE Condition: STABLE Referrals: CHE MAGUIRE P.T. (PCP) Additional Instructions: Thank you for allowing us to participate in your care today. Return to the emergency department you have any new or worsening symptoms, or if you are concerned for any reason. Return to emergency department if you have any new or concerning symptoms including but not limited to fever, chills, nausea, vomiting, intractable pain, any new rashes, chest pain, shortness of air , uncontrolled bleeding, difficulty breathing, and/or vision loss. Follow up with your primary care physician within 3 days. Call your Primary Doctor tomorrow and inform them of your visit today. If you do not have a primary care provider we are happy to provide you with a list of our primary care providers contact information. This condition should be evaluated by your primary care physician and any recommended consulting services for continued management within 2-3 days after discharge. If at any time, you are having difficulty getting into your primary care doctor or a specialist, return to the emergency department. Problem Qualifiers JONI BRENNER MD Mar 31, 2018 12:49
[2018-03-31] MEDS ORDERED: AZITHROMYCIN 250 MG TABLET. PO ONE (13:00)
[2018-03-31] MEDS ORDERED: cefTRIAXone IM 250 MG VIAL IM ONE (13:00)
[2018-03-31 13:04] LABS: BILIRUBIN,URINE SMALL (NEG); CLARITY,URINE CLEAR; COLOR,URINE AMBER; NITRITE,URINE NEGATIVE (NEG); PH,URINE 6.5; PROTEIN,URINE NEGATIVE (NEG-TRACE)
[2018-03-31 13:11] LABS: BASO % 0 % (0-3); EOS # 0.1 x10^3/uL (0.0-0.7); EOS % 1 % (0-3); HEMATOCRIT 45.3 % (36.0-47.0); HEMOGLOBIN 15.7 g/dL (12.0-15.5); LYMPH % 8 % (24-48); MEAN CORPUSCULAR HEMOGLOBIN 33 pg (25-35); MEAN CORPUSCULAR HGB CONC 35 g/dL (31-37); MEAN CORPUSCULAR VOLUME 95 fL (79-100); MONO % 7 % (0-9); NEUT # 11.1 x10^3uL (1.8-7.7); NEUT % 84 % (31-73); PLATELET COUNT 296 x10^3/uL (140-400); RED BLOOD COUNT 4.75 x10^6/uL (3.50-5.40); RED CELL DISTRIBUTION WIDTH 13.4 % (11.5-14.5); WHITE BLOOD COUNT 13.2 x10^3/uL (4.0-11.0)
[2018-03-31 13:12] LABS: SQUAMOUS EPITHELIAL CELL,UR MOD /LPF
[2018-03-31 13:13] LABS: BACTERIA,URINE FEW /HPF (0-FEW); RBC,URINE 0 /HPF (0-2)
[2018-03-31 13:19] LABS: CALCIUM 9.4 mg/dL (8.5-10.1); CREATININE 0.8 mg/dL (0.6-1.0); GFR 104.9; POTASSIUM 3.5 mmol/L (3.5-5.1)
[2018-03-31 13:25] LABS: ALBUMIN 4.3 g/dL (3.4-5.0); ALBUMIN/GLOBULIN RATIO 1.3 (1.0-1.7); PREG TEST PT QUAL NEGATIVE (NEG); TOTAL PROTEIN 7.6 g/dL (6.4-8.2)
--- NOTE | 2018-03-31 13:30 | RAD ---
CHEST PA LATERAL History: Flulike symptoms, nausea and vomiting, history of asthma and sickle cell Comparison: April 12, 2016 Findings: 2 views of the chest are submitted. There is no infiltrate, pneumothorax, or effusion. The cardiac silhouette is within normal limits in size. The trachea is in the midline. No acute osseous abnormality is identified. Impression: 1. There is no evidence of acute cardiopulmonary disease. Electronically signed by: Mono Colón MD (03/31/2018 1:26 PM) [id number]
[2018-03-31] MEDS ORDERED: fentaNYL PF VIAL 100 MCG/2 ML VIAL IV PRN (14:00)
[2018-03-31] MEDS ORDERED: ONDANSETRON PF 4 MG/2 ML VIAL. ONE (14:02)
[2018-03-31] MEDS ORDERED: ONDANSETRON PF 4 MG/2 ML VIAL. IV ONE (14:15)
--- NOTE | 2018-03-31 14:45 | RAD ---
EXAM: Pelvic sonogram. HISTORY: Pain. TECHNIQUE: Transabdominal and transvaginal sonographic imaging of the pelvis was performed. COMPARISON: None. FINDINGS: The uterus is retroflexed and measures 7.5 x 5.2 x 5.9 cm. The endometrial stripe measures 12.2 mm in thickness. There is a 4.1 cm complex left ovarian cyst. There is normal blood flow within both ovaries. There is a small amount of pelvic free fluid. IMPRESSION: 1. 4.1 cm complex left ovarian cyst, hemorrhagic in appearance. Follow-up can be performed to confirm resolution. 2. Retroflexed uterus with prominent endometrial stripe, likely due to the phase of the patient's menstrual cycle. 3. Small amount of nonspecific pelvic free fluid. Electronically signed by: Cathy Sheffield MD (03/31/2018 2:41 PM) [email or web address]
[2018-03-31 15:00] VITALS: BP 96/58
[2018-03-31] MEDS ORDERED: FLUCONAZOLE 100 MG TABLET. PO ONE (15:30)
[2018-04-01 14:44] LABS: GC PROBE Negative (Negative)
== END 2018-03-31 15:40 | disposition home or self-care (01) ==
LOC: ER 11:54
DX: B37.89 Other sites of candidiasis (principal); R10.30 Lower abdominal pain, unspecified; J02.9 Acute pharyngitis, unspecified; R11.2 Nausea with vomiting, unspecified; J45.909 Unspecified asthma, uncomplicated; K58.9 Irritable bowel syndrome, unspecified
CPT/HCPCS: 36415; 71046; 76830; 76856; 80053; 81001; 81025; 83690; 84703; 85025; 87070; 87491; 87591; 87880; 96361; 96372; 96374; 96375; 99285; J0696; J2405; J3010; J7030; Q0111; Q0144

== ENCOUNTER 2018-11-01 16:20 | Emergency (ER) | payer OTHER ==
[~2018-11-01] VITALS: Ht 167.6 cm; Wt 47.6 kg
[~2018-11-01 16:20] MED LIST changes: +ALBU2.5V8 INH; +HYDR-3164 PO; -HYDR-971 PO; -PROAIR HFA8.5 GM INH
[2018-11-01 16:40] VITALS: BP 141/88
--- NOTE | 2018-11-01 17:51 | RAD ---
Three views left shoulder History: pain Internally and externally rotated AP of shoulder obtained, as well as "Y" view. The glenohumeral relationship is normal. The visualized osseous structures appear normal. There is none shrapnel seen projecting over the rotator cuff. Impression: Shrapnel likely within the supraspinatus tendon. No acute findings. end impression Electronically signed by: Tien Galeano III, MD (11/01/2018 5:48 PM) [facility]
[2018-11-01] MEDS ORDERED: DICL50TA4 PO (18:00)
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
== END 2018-11-01 18:09 | disposition home or self-care (01) ==
LOC: ER 16:20
DX: M25.512 Pain in left shoulder (principal); J45.909 Unspecified asthma, uncomplicated; F17.200 Nicotine dependence, unspecified, uncomplicated; K58.9 Irritable bowel syndrome, unspecified
CPT/HCPCS: 73030; 99284